=== PATIENT | female | born 1980 | race Caucasian/White ===

== ENCOUNTER 2016-06-17 04:57 | Emergency (ER) ==
[2016-06-17] MEDS ORDERED: SODIUM CHLORIDE 0.9% INJ ONE (05:45)
[2016-06-17] MEDS ORDERED: ZOFRAN IV ONE (05:45)
[2016-06-17] MEDS ORDERED: NS 1,000 ML IV ONE ×2 (05:45→07:52)
[2016-06-17] MEDS ORDERED: PROTONIX IV ONE (05:45)
[2016-06-17 06:25] LABS: BASO% 0.1 % (0.0-0.8); EOS# 0.28 X1000 (0.0-0.7); EOS% 1.7 % (0.0-10.0); HEMATOCRIT 47.7 % (37.0-47.0); HEMOGLOBIN 15.2 g/dL (12.0-16.0); IMM GRAN# 0.04 X1000 (0.0-0.04); IMM GRAN% 0.2 % (0.0-0.5); LYMPH# 0.79 X1000 (1.2-3.4); LYMPH% 4.9 % (20.5-51.1); MANUAL DIFF NEEDED? NO; MCH 29.5 PG (27-31); MCHC 31.9 g/dL (33-37); MCV 92.4 FL (81-99); MONO# 0.62 X1000 (0.11-0.59); MONO% 3.9 % (1.7-9.3); MPV 10.9 FL (7.4-10.4); NEUT% 89.2 % (42.2-75.2); PLT 278 X1000 (130-400); RBC 5.16 XMIL (4.2-5.4)
[2016-06-17 06:31] LABS: URINE SOURCE CLEAN CATCH
[2016-06-17 06:35] LABS: URINE RBC <10 /HPF (<10); URINE WBC <10 /HPF (<10)
[2016-06-17 06:36] LABS: BILIRUBIN URINE NEGATIVE (NEGATIVE); BLOOD URINE NEGATIVE (NEGATIVE); CLARITY TURBID (CLEAR); COLOR ORANGE; GLUCOSE URINE NEGATIVE (NEGATIVE); PH URINE 5.5; PROTEIN URINE TRACE mg/dL (NEGATIVE); SP GRAVITY URINE 1.029; URINE EPITHELIAL CELLS <10 /HPF (<10); UROBILINOGEN URINE 0.2 EU/dL (0.2-1.0)
[2016-06-17 06:37] LABS: LEUKOCYTES URINE NEGATIVE (NEGATIVE); NITRITE URINE NEGATIVE (NEGATIVE); URINE CULTURE NEEDED? YES
--- NOTE | 2016-06-17 06:50 | PROVIDER DOCUMENTATION ---
HPI-Abdominal Pain/GI Problem - General Chief Complaint: N/V/D Stated Complaint: V/D Time Seen by Provider: 06/17/16 06:16 Source: patient Allergies/Adverse Reactions: Patient Allergies Allergy/AdvReac Type Severity Reaction Status Date / Time No Known Allergies Allergy Verified 06/17/16 06:30 Home Medications: Home Medication List Medication Instructions Recorded Confirmed Last Taken Type Ciprofloxacin HCl [Cipro] 500 mg PO BID #20 tablet 06/17/16 Unknown Rx Clonazepam [Klonopin] 0.5 mg PO PRN PRN 06/17/16 06/17/16 06/10/16 History Ondansetron Odt [Zofran 8Mg Odt] 8 mg PO Q8H PRN PRN #10 tablet 06/17/16 Unknown Rx - History of Present Illness-ABD Nature of Presenting Problems: Reports N/V/D since last night. Lost count for the episodes. Aching all over. Marcia F/C/SOB/cough/preg/dysuria. Reports diffused abd pain. H/o hugo, but not sure for appy. Abdominal Pain Onset Location: reports: generalized abdomen Pain Radiation: reports: no radiation Quality of Pain: reports: aching Severity in ED: reports: moderate Onset/Duration: reports: last night Timing: reports: still present Activities at Onset: reports: none Exposure to sick contacts?: No Modifying Factors: improves with: nothing Associated Symptoms: reports: diarrhea, fatigue, headaches, loss of appetite, malaise, nausea, vomiting. denies: arm pain, chest pain, constipation, cough, dizziness, fever/chills, genitourinary problems, weakness, trouble walking Rectal Bleeding: reports: none # of Diarrhea Episodes: 10 Rectal Pain: reports: none # of Vomiting Episodes: 10 Emesis Description: reports: clear Bruising or Bleeding Gums?: No Similar Symptoms Previously?: No Review of Systems - Adult - REVIEW OF SYSTEMS - ADULT Constitutional: reports: see HPI, fatique. denies: fever Eyes: reports: no symptoms reported Ears, Nose, Mouth & Throat: reports: no symptoms reported Cardiovascular: reports: no symptoms reported Respiratory: reports: no symptoms reported Gastrointestinal: reports: see HPI, abdominal pain, diarrhea, nausea, poor appetite, vomiting. denies: constipation, difficulty swallowing, frequent heartburn Genitourinary: reports: no symptoms reported. denies: dysuria, urgency Musculoskeletal: reports: no symptoms reported Integumentary: reports: no symptoms reported Neurological: reports: no symptoms reported Psychiatric: reports: no symptoms reported Endocrine: reports: no symptoms reported Allergic/Immunologic: reports: no symptoms reported All Other Systems: Reviewed and Negative Past History - Adult - PAST MEDICAL HISTORY-ADULT Review of Records: reports: Old Records Reviewed, Nursing Assessment Review, Medications Reviewed, Social history reviewed & non-contributory. Physical Exam-General - PHYSICAL EXAM-ADULT Initial Vital Signs Reviewed: Yes - CONSTITUTIONAL General Appearance: appears well, alert, no apparent distress - EYES Eyes: PERRL/EOMI, pink conjunctivae - HEAD, EARS, NOSE, MOUTH & THROAT HENMT: normocephalic/atraumatic, moist mucous membranes, pharynx normal. negative: angioedema, pharyngeal erythema, tonsillar exudate - NECK Neck: non-tender, full range of motion, supple - RESPIRATORY Respiratory: chest non-tender, lungs clear, normal breath sounds, no pleuratic chest pain, no respiratory distress, no accessory muscle use - CARDIOVASCULAR Cardiovascular: normal peripheral pulses, regular rate, rhythm, no edema, no gallop, no JVD - GASTROINTESTINAL (ABDOMEN) Abdominal Exam: normal bowel sounds, non tender, soft - MUSCULOSKELETAL Back Exam: normal inspection, no CVA tenderness, no vertebral tenderness Extremity: normal range of motion, non-tender, normal gait, normal inspection - SKIN Integumentary: normal color, normal turgor, warm/dry - NEUROLOGIC Neurologic: grossly normal, no motor/sensory deficits, abnormal gait - PSYCHIATRIC Psych/Mental Status: normal mood/affect, normal thought content, normal thought process, oriented x 3 Progress - PLAN OF CARE/RESULTS Progress/Plan/Lab Results: Laboratory Results - last 24 hr 06/17/16 06/17/16 06/17/16 06:00 06:10 06:10 WBC 16.07 H RBC 5.16 Hgb 15.2 Hct 47.7 H MCV 92.4 MCH 29.5 MCHC 31.9 L RDW Std Deviation 13.4 Plt Count 278 MPV 10.9 H Immature Gran % (Auto) 0.2 Neut % (Auto) 89.2 H Lymph % (Auto) 4.9 L [place] % (Auto) 3.9 Eos % (Auto) 1.7 Baso % (Auto) 0.1 Immature Gran # (Auto) 0.04 Neut # (Auto) 14.32 H Lymph # (Auto) 0.79 L [place] # (Auto) 0.62 H Eos # (Auto) 0.28 Baso # (Auto) 0.02 Sodium Potassium Chloride Carbon Dioxide Anion Gap BUN Creatinine Estimated GFR/1.73 m2 BUN/Creatinine Ratio Glucose Calculated Osmolality Calcium Total Bilirubin AST ALT Alkaline Phosphatase Total Protein Albumin Globulin Albumin/Globulin Ratio Amylase 24 Lipase 27 Urine Source CLEAN CATCH Urine Color ORANGE Urine Clarity TURBID A Urine pH 5.5 Ur Specific [place] 1.029 Urine Protein TRACE A Urine Ketones NEGATIVE Urine Blood NEGATIVE Urine Nitrite NEGATIVE Urine Bilirubin NEGATIVE Urine Urobilinogen 0.2 Urine Microscopic RBC <10 Urine WBC NEGATIVE Urine Microscopic WBC <10 Ur Epithelial Cells <10 Urine Bacteria 1+ Urine Glucose NEGATIVE 06/17/16 06:10 WBC RBC Hgb Hct MCV MCH MCHC RDW Std Deviation Plt Count MPV Immature Gran % (Auto) Neut % (Auto) Lymph % (Auto) [place] % (Auto) Eos % (Auto) Baso % (Auto) Immature Gran # (Auto) Neut # (Auto) Lymph # (Auto) [place] # (Auto) Eos # (Auto) Baso # (Auto) Sodium 142 Potassium 4.1 Chloride 115 H Carbon Dioxide 16 L Anion Gap 11 BUN 12 Creatinine 0.5 Estimated GFR/1.73 m2 > 60 BUN/Creatinine Ratio 24 Glucose 106 H Calculated Osmolality 283 Calcium 6.6 L* Total Bilirubin 0.20 AST 21 ALT 14 Alkaline Phosphatase 61 Total Protein 5.0 L Albumin 2.7 L Globulin 2.3 Albumin/Globulin Ratio 1.2 Amylase Lipase Urine Source Urine Color Urine Clarity Urine pH Ur Specific [place] Urine Protein Urine Ketones Urine Blood Urine Nitrite Urine Bilirubin Urine Urobilinogen Urine Microscopic RBC Urine WBC Urine Microscopic WBC Ur Epithelial Cells Urine Bacteria Urine Glucose Bedside Urine ED: Urine Bedside Start: 06/17/16 05:40 Freq: ORDERED Status: Active Activity Type Activity Date Activity User Co-Sign Detail Recorded Client Recorded Date Recorded By Document 06/17/16 06:24 [id number] 06/17/16 06:24 [id number] 06/17/16 06:24 Point of Care [Bedside Point of Care] -Lot # [id number] - Results Negative -Control Line Visible? Yes Vital Signs Temp Pulse Resp BP Pulse Ox 06/17/16 05:02 97.7 F 105 H 20 157/99 98 No Known Allergies Allergy (Verified 06/17/16 06:30) Clonazepam [Klonopin] 0.5 mg PO PRN PRN 06/17/16 Dietary Diet NPO Start Sat Jun 17 544 I&O 06/16/16 06/17/16 06/18/16 06:59 06:59 06:59 Output Total 10 Balance -10 Laboratory 06/17/16 06/17/16 06/17/16 06:10 06:10 06:10 WBC 16.07 H RBC 5.16 Hgb 15.2 Hct 47.7 H MCV 92.4 MCH 29.5 MCHC 31.9 L RDW Std Deviation 13.4 Plt Count 278 MPV 10.9 H Immature Gran % (Auto) 0.2 Neut % (Auto) 89.2 H Lymph % (Auto) 4.9 L [place] % (Auto) 3.9 Eos % (Auto) 1.7 Baso % (Auto) 0.1 Immature Gran # (Auto) 0.04 Neut # (Auto) 14.32 H Lymph # (Auto) 0.79 L [place] # (Auto) 0.62 H Eos # (Auto) 0.28 Baso # (Auto) 0.02 Sodium 142 Potassium 4.1 Chloride 115 H Carbon Dioxide 16 L Anion Gap 11 BUN 12 Creatinine 0.5 Estimated GFR/1.73 m2 > 60 BUN/Creatinine Ratio 24 Glucose 106 H Calculated Osmolality 283 Calcium 6.6 L* Total Bilirubin 0.20 AST 21 ALT 14 Alkaline Phosphatase 61 Total Protein 5.0 L Albumin 2.7 L Globulin 2.3 Albumin/Globulin Ratio 1.2 Amylase 24 Lipase 27 Urine Source Urine Color Urine Clarity Urine pH Ur Specific [place] Urine Protein Urine Ketones Urine Blood Urine Nitrite Urine Bilirubin Urine Urobilinogen Urine Microscopic RBC Urine WBC Urine Microscopic WBC Ur Epithelial Cells Urine Bacteria Urine Glucose 06/17/16 06:00 WBC RBC Hgb Hct MCV MCH MCHC RDW Std Deviation Plt Count MPV Immature Gran % (Auto) Neut % (Auto) Lymph % (Auto) [place] % (Auto) Eos % (Auto) Baso % (Auto) Immature Gran # (Auto) Neut # (Auto) Lymph # (Auto) [place] # (Auto) Eos # (Auto) Baso # (Auto) Sodium Potassium Chloride Carbon Dioxide Anion Gap BUN Creatinine Estimated GFR/1.73 m2 BUN/Creatinine Ratio Glucose Calculated Osmolality Calcium Total Bilirubin AST ALT Alkaline Phosphatase Total Protein Albumin Globulin Albumin/Globulin Ratio Amylase Lipase Urine Source CLEAN CATCH Urine Color ORANGE Urine Clarity TURBID A Urine pH 5.5 Ur Specific [place] 1.029 Urine Protein TRACE A Urine Ketones NEGATIVE Urine Blood NEGATIVE Urine Nitrite NEGATIVE Urine Bilirubin NEGATIVE Urine Urobilinogen 0.2 Urine Microscopic RBC <10 Urine WBC NEGATIVE Urine Microscopic WBC <10 Ur Epithelial Cells <10 Urine Bacteria 1+ Urine Glucose NEGATIVE Orders Category Date Time Status ED: Urine Bedside ORDERED Care 06/17/16 05:40 Active Saline Loc DIRECTED Care 06/17/16 05:45 Active NPO Diet 06/17/16 05:45 Active RENAL STONE SEARCH [CT] Stat Exams 06/17/16 06:45 Taken AMYLASE [CHEM] Stat Lab 06/17/16 06:10 Completed CBC WITH ELECTRONIC DIFF [HEME] Stat Lab 06/17/16 06:10 Completed COMPREHENSIVE METABOLIC PANEL [CHEM] Stat Lab 06/17/16 06:10 Completed LIPASE [CHEM] Stat Lab 06/17/16 06:10 Completed URINE CULTURE [RM] Routine Lab 06/17/16 06:37 Received 0.9% Sodium Chloride Inj [Ns] 1,000 ml Med 06/17/16 05:45 Discontinued IV 999 mls/hr 0.9% Sodium Chloride Inj [Ns] 1,000 ml Med 06/17/16 07:52 Active IV 999 mls/hr Calcium Gluconate 1 gm Med 06/17/16 06:55 Discontinued 0.9% Sodium Chloride Inj [Ns] 50 ml IV NOW Ondansetron [Zofran] Med 06/17/16 05:45 Discontinued 4 mg IV NOW ONE Pantoprazole [Protonix] Med 06/17/16 05:45 Discontinued 40 mg IV NOW ONE Sodium Chloride 0.9% Med 06/17/16 05:45 Discontinued 10 ml INJ NOW ONE - CT/MRI 1 CT Study: Renal Stone (No renal stone. Normal appendix. Small shorty mesenteric nodes.) Departure - Departure Time of Disposition Order: 08:48 DIAGNOSIS: Mesenteric adenitis, Gastroenteritis Disposition: HOME 01 Certified Medical Emergency: Emergent Condition: Stable Additional Instructions: Follow up with regular MD in 2-3 days. Plenty of oral fluids. Return to ER if your symptoms worsen. Prescriptions: Ciprofloxacin HCl [Cipro] 500 mg PO BID #20 tablet Ondansetron Odt [Zofran 8Mg Odt] 8 mg PO Q8H PRN PRN #10 tablet PRN Reason: Nausea And Vomiting Referrals: Anatoly Purcell MD [Primary Care Provider] -
[2016-06-17 06:51] LABS: AGAP 11; ALBUMIN 2.7 g/dL (3.5-5.0); ALKALINE PHOSPHATASE 61 U/L (32-104); BUN 12 mg/dL (8-22); CALCIUM 6.6 mg/dL (8.8-10.2); CHLORIDE 115 mmol/L (98-107); COSMO 283; GOT 21 U/L (10-30); GPT 14 U/L (10-36); POTASSIUM 4.1 mmol/L (3.5-5.1); SODIUM 142 mmol/L (136-145); TCO2 16 mmol/L (25-35)
[2016-06-17] MEDS ORDERED: CALCIUM GLUCONATE 1 GM in NS 50 ML IV ONE (06:55)
[2016-06-17 06:59] LABS: AMYLASE 24 U/L (20-200); LIPASE 27 U/L (13-60)
[2016-06-17 09:56] VITALS: BP 126/78
--- NOTE | 2016-06-17 11:24 | Diag Imaging Result Document ---
PROCEDURE NAME: RENAL STONE SEARCH - 06/17/2016 CT ABDOMEN AND PELVIS WITHOUT CONTRAST/RENAL STONE PROTOCOL: COMPARISON: None available. FINDINGS: There has been a previous cholecystectomy. There are no renal or ureteral stones, and there is no hydronephrosis. The urinary bladder is unremarkable. The appendix is normal. No focal inflammatory change, free abdominal gas, or free fluid is identified. The remainder of the solid viscera of the abdomen and pelvis and the remainder of the GI tract is essentially unremarkable. There is sclerosis adjacent to both SI joints, worse on the right, consistent with nonspecific sacroiliitis. Please correlate clinically. IMPRESSION: 1. No evidence of acute pathology. 2. Suggestion of asymmetric sacroiliitis, worse on the right.
== END 2016-06-17 09:56 | disposition home or self-care (01) ==
LOC: ED 04:57
DX: I88.0 Nonspecific mesenteric lymphadenitis (principal); K52.9 Noninfective gastroenteritis and colitis, unspecified; R11.2 Nausea with vomiting, unspecified; R10.84 Generalized abdominal pain; R19.7 Diarrhea, unspecified; R53.83 Other fatigue; R51 Headache; R53.81 Other malaise; Z79.899 Other long term (current) drug therapy
CPT/HCPCS: 74176; 80053; 81001; 82150; 83690; 85025; 87088; C9113; J0610; J2405; J7030; S0164